=== PATIENT | male | born 1975 | race Caucasian/White ===

== ENCOUNTER 2017-10-11 12:51 | Emergency (ER) | payer OTHER ==
[~2017-10-11] VITALS: Ht 182.9 cm; Wt 109.0 kg
[~2017-10-11 12:51] MED LIST: ADDERALL20 MG PO; AMOXICILLIN500 MG PO; ANTACID MAXIM1000 MG PO; BACLOFEN20 MG PO; BENADRYL25 MG PO; BISACODYL SUPP10 MG PR; BISACODYL5 MG PO; CIPRO500 MG PO; CITROMA296 ML PO; COLACE100 MG PO; DAILY VALUE1 EACH PO; DOCUSATE SODIU100 MG PO; ESSENTIAL DAIL1 EACH PO; EXTRA STRENGTH500 M1 PO; FLEXERIL5 MG PO; GABAPENTIN300 MG PO; KEFLEX500 MG PO; LEVAQUIN750 MG PO; LORAZEPAM1 MG PO; LOVENOX40 MG/0.4 SC; LYRICA75 MG PO; MAG-AL PLUS SUS30 ML PO; MOTRIN600 MG PO; NAPROXEN500 MG PO; NEURONTIN300 MG PO; ONDANSETRON ODT4 MG PO; OXYCODONE HCL5 MG PO; OXYCONTIN40 MG PO; PANTOPRAZOLE SO40 MG PO; PERCOCET 5/31 TABLET PO; ROCEPHIN1000 MG IM; SALINE FLUSH 1010 ML IV; TUMS ULTRA1000 MG PO; ZOFRAN4 MG PO
[2017-10-11 15:31] VITALS: BP 146/100
[2017-10-11] MEDS ORDERED: OXYCONTIN15 MG PO (15:57)
[2017-10-11] MEDS ORDERED: PROMETHAZINE HC25 M1 PO (15:57)
[2017-10-11] MEDS ORDERED: LYRICA100 MG PO (15:57)
[2017-10-11] MEDS ORDERED: DURAGESIC25 MCG TD (15:57)
[2017-10-11] MEDS ORDERED: BACLOFEN20 MG PO (15:57)
== END 2017-10-11 17:13 | disposition home or self-care (01) ==
LOC: EME 12:51
DX: G89.21 Chronic pain due to trauma (principal); Z76.0 Encounter for issue of repeat prescription; G82.20 Paraplegia, unspecified; Z87.828 Personal history of other (healed) physical injury and trauma; Z87.891 Personal history of nicotine dependence
CPT/HCPCS: 99281; 99284